=== PATIENT | female | born 1945 | race Caucasian/White ===

== ENCOUNTER 2024-02-15 11:36 | Inpatient (IN) | payer MEDICARE, BC, SELFPAY ==
--- NOTE | 2024-01-10 11:08 | CM ---
Patient is scheduled for an elective L TKR on 02/15/24. Spoke with patient and prior to surgery via telephone. Introduced role of Orthopedic Navigator. Patient reports that she lives with her in a one floor apartment. There are no
steps to enter and building is elevator accessible. She currently functions independently. She uses a cane outside and also has toilet rails and a higher toilet. She has never had VN services. PCP is Levar Christie.
Discussed orthopedic program and post surgical plans. Reviewed anticipated length of stay and that goal is for her to return home at discharge. Also reviewed outpatient PT. Patient is in agreement with tentative plan and will go directly to
outpatient PT at [facility]. She will have support from her when she goes home.
Patient will complete online education.
Plan: Orthopedic Navigator will remain available to assist with the care of patient and will reassess discharge needs after surgery.
[2024-01-23 08:01] VITALS: BMI 42.0
[2024-01-23 09:16] LABS: Hematocrit 37.5 % (37.0-47.0); Hemoglobin 12.2 g/dL (12.0-16.0); Mean Corp Hgb Conc. 32.5 g/dL (33.0-37.0); Mean Corpuscular Volume 89.1 fL (81.0-99.0); Mean Platelet Volume 10.2 fL (7.4-10.4); Platelet Count 428 10^3/uL (130-400); Red Blood Cell Count 4.21 10^6/uL (4.20-5.40); Red Cell Dist. Width 14.2 % (11.5-14.5); White Blood Cell Count 5.8 10^3/uL (4.8-10.8)
[2024-01-23 09:42] LABS: ALT (SGPT) 15 U/L (0-35); AST (SGOT) 26 U/L (14-36); Albumin 4.3 g/dl (3.5-5.0); Alkaline Phosphatase 98 U/L (38-126); Blood Urea Nitrogen 14 mg/dl (7-17); Calcium 10.3 mg/dl (8.4-10.2); Carbon Dioxide 25 mmol/L (22-30); Chloride 105 mmol/L (98-107); Estimated Creatinine Clearance 88 ml/min; Glucose 105 mg/dl (70-99); Potassium 5.4 mmol/L (3.5-5.1); Sodium 139 mmol/L (135-145); Total Bilirubin 0.6 mg/dl (0.2-1.3); Total Protein 7.2 g/dl (6.3-8.2); eGFR > 60.00
[2024-01-23 15:16] VITALS: BMI 42.0
[2024-02-15] VITALS (12 sets, daily range): BP systolic 138–170; BP diastolic 66–94; PULSE 63; O2SAT 99; BMI 42.0
[2024-02-15] MEDS: TYLENOL 650 MG PO ×4 (10:44→23:19)
[2024-02-15] MEDS: CELEBREX 200 MG PO (10:45)
[2024-02-15] MEDS: NORMOSOL-R 1000 IV ×2 (10:53→14:45)
[2024-02-15] MEDS: ROXICODONE 5 MG PO (14:50)
[2024-02-15] MEDS: PROTONIX 40 MG PO (15:27)
--- NOTE | 2024-02-15 16:12 | PTCARENOTE ---
1600: Patient arrived to 2S. Full head to toe assessment completed. B/L LE neurovascular assessment completed. Dressing on L knee clean dry and intact. IVF running per order. Call benites within reach and bed in lowest position.
--- NOTE | 2024-02-15 16:36 | OR.RPT ---
Operative Report
Operative Report
Orthopaedic Surgery Operative Note
DATE OF OPERATION: 02/15/2024
PREOPERATIVE DIAGNOSES: Osteoarthritis, left knee.
POSTOPERATIVE DIAGNOSES: Osteoarthritis, left knee.
OPERATION PERFORMED:
1) Left total knee arthroplasty (CPT 46402 with 22 modifier)
2) Intraosseous administration of analgesic (CPT 05854)
SURGEON: Elver Zacarias MD
ASSISTANTS: Ward Quinones PA-C who helped with patient and limb positioning and retraction
ANESTHESIA: Spinal by anesthesia plus intraoperative infusion of morphine into the tibial metaphysis by Dr. Zacarias
COMPLICATIONS: None.
ESTIMATED BLOOD LOSS: 20mL
DRAINS: None
TOURNIQUET TIME: 45minutes.
IMPLANTS:
- Pamela Persona CR Femur, size 9
- Pamela Persona tibia base plate, size D
- Pamela Persona medial constrained articular surface, 12 mm
- All-polyethylene patellar component, size 32
- DJO [place] bone cement
INDICATIONS: The patient presented to my office with debilitating left knee pain due to osteoarthritis. We reviewed the natural history of this problem, as well as the risks, benefits, and alternatives of various treatment options. The patient
exhausted all nonoperative treatment options and wished to proceed with knee replacement surgery. The patient understood the risks which included, but were not limited to, bleeding, infection, failure to relieve pain, more pain than preop, damage to
blood vessels and nerves, need for reoperation, mechanical failure of the implants, wound healing problems, stiffness, instability, blood clot, pulmonary embolism, myocardial infarction, pneumonia, arrhythmia, CVA, and . The patient accepted
these risks and wished to proceed. All questions were answered, and informed consent was obtained.
PROCEDURE IN DETAIL: The patient was identified in the preoperative holding area. The left knee was identified as the operative site. The patient was taken in the operating room and placed in a supine position on the operating table. Spinal
anesthesia was performed. IV antibiotics and tranexamic acid were administered. An SCD was placed on the right lower extremity. A well-padded tourniquet was placed on the proximal thigh. All bony prominences were well padded. The left lower
extremity was prepped and draped in the usual sterile fashion.
We performed a surgical time-out. An interarticular block was performed with local anesthetic with epinephrine. I performed interosseous administration of morphine-saline solution via a Jamshidi style intraosseous needle into the proximal medial
tibial metaphysis as described by Giles Hebert MD. This was performed to aid in pain control. The limb was exsanguinated with an Esmarch bandage, then the tourniquet was inflated to 250 mmHg. A midline skin incision was made followed by a medial
parapatellar arthrotomy. A subperiosteal peel was performed on the medial tibia. I excised part of the infrapatellar fat pad to improve our visualization as well as tissue over anterior femur. The patella was everted and the knee was flexed. I
excised the remnants of the anterior and posterior cruciate ligaments as well as tibial and femoral osteophytes with rongeurs.
The knee was flexed, and the extramedullary tibial cutting guide was aligned. Morrison was aligned at neutral, rotation was centered on the tibial tubercle, and coronal alignment was aligned with the mechanical axis of the tibia and center of the ankle
joint. The cut height was 10mm off the lateral tibia joint surface. The guide was secured into place. The MCL and LCL were protected. The tibia surface was cut. The cut surface was inspected after removal to ensure appropriate height and slope based
on the preoperative plan. The cut was checked with a drop brian. It was centered nicely at the ankle.
A drill was used to open the femoral canal. The intramedullary distal femoral cutting guide was inserted into the femur. This was set at 5 degrees +1. This was secured into place with three pins. The cut level was checked with an galo wing. The
distal femur was cut through the cutting guide. The IM guide was reinserted to double check that the level of resection was flush and in appropriate alignment.
Kunal�s line and the transepicondylar axis were marked on the femur. The femoral sizing guide was applied to the anterior femur. Pins were inserted, and the 4-in-1 cutting guide was applied and secured into place. The rotation was compared to
Kunal�s line, the transepicondylar axis, and the neutral tibia cut and was found to be appropriate. The width was checked and found to be appropriate and lateralized on the femur. The anterior, posterior, and chamfur cuts were made. A lamina
aviation operations specialist was used to open the flexion gap, and posterior osteophytes were removed with a curved osteotome. The remnant medial and lateral meniscus were also removed. I prophylactically cauterized the lateral geniculate arteries. A 10mm spacer block
was applied to the flexion gap and was noted to be balanced medially and laterally. The knee was extended, and the block showed symmetric to extension and flexion gaps.
The tibia was exposed and sized. Rotation was set in line with the tibial tubercle and congruent with the femur. The trial was secured into place with two pins. The trial femur was impacted into place, and a trial articular surface was placed. The
knee was taken through range of motion and noted to be stable throughout the arc of motion without gaping or excess tension. In extension, a measured resection of the patella was performed. The patella was sized, and lug holes were drilled. A trial
patella component was applied, and it was noted to track centrally throughout the arc of motion without need for further releases.
The trials were removed. The tibia keel was prepared with the punch and the drill. The bone surfaces were irrigated with sterile saline and dried. The cement was mixed in a vacuum mixer. Cement gun was used to apply cement to the tibial surface and
the undersurface of the tibial implant. Cement was pressurized into the tibial canal and tibia surface. The tibial component was impacted into place. Excess cement was removed. Cement was applied to the femoral surface and the femoral component. The
femoral component was impacted into place, and excess cement removed. A trial articular surface was inserted, and the knee was extended while the cement polymerized. The tourniquet was let down, and meticulous hemostasis was achieved. Dilute
betadine was poured into the wound and allowed to soak for 3 minutes. The knee was irrigated with copious normal saline.
Once the cement was polymerized, the trial articular surface was removed. Any excess cement was removed. The knee was trialed, and the final articular surface was selected and inserted into the tibial locking mechanism. The knee was reduced. A fresh
drape was applied to the surgical field.
The arthrotomy was closed with 0-PDS. Once closed, an interarticular block was performed with local anesthetic with epi. The deep dermal layer was closed with 2-0 PDS, and the subcuticular skin was closed with 3-0 monocryl. A Dermabond Prineo
dressing was applied to the skin in full flexion. Once this was completely dry, a sterile waterproof dressing was applied.
The anesthesia team performed an adductor canal block in the OR. The patient awoke from anesthesia without any difficulties. The sponge and instrument counts were correct x2 at the end of the case.
Of note, 22 modifier was added for complexity due to BMI >40kg/m2 which added 20 additional minutes for positioning, exposure, and implanting the components.
Babak Zacarias MD
[2024-02-15] MEDS: LIPITOR 20 MG PO (17:01)
[2024-02-15] MEDS: ASPIRIN 325 MG PO (17:01)
[2024-02-15] MEDS: DELTASONE 40 MG PO (17:01)
[2024-02-15] MEDS: AZULFIDINE 500 MG PO (19:45)
[2024-02-15] MEDS: COLACE 100 MG PO (19:45)
[2024-02-15] MEDS: SENOKOT 17.1999999999999993 MG PO (19:45)
[2024-02-15] MEDS: ANCEF 5 IV (19:46)
[2024-02-15] MEDS: BACTROBAN 2% OINTMENT 1 APPLIC NASAL (19:46)
[2024-02-15] MEDS: COREG 12.5 MG PO (19:46)
[2024-02-15] MEDS: NEURONTIN 300 MG PO (23:19)
[2024-02-16] MEDS: ANCEF 5 IV (03:18)
[2024-02-16] MEDS: TYLENOL 650 MG PO ×2 (03:19→08:10)
[2024-02-16 03:20] VITALS: BP 164/98
[2024-02-16 07:52] VITALS: BP 126/69
[2024-02-16] MEDS: ASPIRIN 325 MG PO (08:11)
[2024-02-16] MEDS: DELTASONE 40 MG PO (08:11)
[2024-02-16] MEDS: VISBIOME 1 CAP PO (08:11)
[2024-02-16] MEDS: PROTONIX 40 MG PO (08:11)
[2024-02-16] MEDS: COLACE 100 MG PO (08:11)
[2024-02-16] MEDS: COREG 12.5 MG PO (08:11)
[2024-02-16] MEDS: SENOKOT 17.1999999999999993 MG PO (08:11)
[2024-02-16] MEDS: BACTROBAN 2% OINTMENT 1 APPLIC NASAL (08:12)
[2024-02-16] MEDS: AZULFIDINE 500 MG PO (08:12)
--- NOTE | 2024-02-16 08:42 | CM ---
Addendum entered by NICOL Moreno 02/16/24 11:24:
met and patient in room. Gave them outpatient PT script. Patient did well , no concerns about discharge to home today.
Original Note:
Reviewed chart and held rounds with PT, OT and nursing. Patient admitted as planned for elective L TKR. Met with patient at bedside. Confirmed information previously obtained for assessment. Also discussed discharge plans. The plan is for patient to
return home at discharge. She will have support from when she goes home. Patient will go directly to outpatient PT and will go to [facility]. She has an appointment scheduled for Monday, 02/18. Reviewed need to schedule appointment with Dr Zacarias
office in two weeks for removal of dressing and macy.
Patient has a rolling walker, cane, comfort height toilet seat.
She will use [facility] pharmacy for discharge prescriptions.
[2024-02-16 09:09] VITALS: BP 148/72; PULSE 73; O2SAT 97
[2024-02-16 09:47] VITALS: BP 131/61; PULSE 72; O2SAT 95
--- NOTE | 2024-02-16 10:12 | W.PN.ORTHO ---
Today's Communication / Plan
-
d/c
Assessment
.
Distal Motor Intact: Yes
Dressing:
Clean, dry and intact.
Plan
.
Surgery / Date: Alena Zacarias 02/15/24
DVT Prophylaxis: Aspirin
Activity:
Out of bed.
PT/OT
Discharge Plan: Home w/ Outpatient PT
Subjective
.
.:
Patient resting comfortably.
Vital Signs and Labs
.
Vital Signs and Labs:
Lab Results
01/23/24 07:57
01/23/24 07:57
Temp Pulse Resp BP Pulse Ox
98 F 61 18 126/69 95
02/16/24 07:52 02/16/24 07:52 02/16/24 07:52 02/16/24 08:11 02/16/24 07:52
Non-invasive Hgb result: 11.2
Physical Exam
-
HEENT: No pallor, cyanosis, or jaundice. Throat clear.
NECK: Supple. No JVD.
RESPIRATORY: Lungs clear to auscultation.
CVS: S1, S2 normal. RRR.� No murmur, rub or gallop.
ABDOMEN: Soft, non-tender. No distension. BS+/normal.
EXTREMITIES: strength equal, no calf pain with palpation
LABOR ECONOMICS PROFESSOR: AOx3. No focal deficits. it risk analyst grossly intact
--- NOTE | 2024-02-16 10:22 | W.DS.TRANS ---
DC Summary - Wire Spinner
-
Discharge Instructions:
Discharge Diagnosis/Procedures L TKA Dr. Zacarias 02/15/24
Diet As tolerated
Activity With Walker
Driving Restrictions No driving
Bathing Restrictions OK to Shower
Other Services PT
Instructions:
Stand-Alone Forms: Total Hip/Knee Replacement D/C
Changes to Home Medications: Yes
Discharge Medications:
DC Medications w/original date entered in [facility]
Bifidobacterium infantis 10.5 mg (10 million cell) chewable tablet (Align) 10.5 mg PO DAILY 01/17/24
Centrum Silver Women 1 tab PO DAILY 01/17/24
Co Q-10 1 tab PO HS 01/17/24
Simponi 1 unit IV .Q 2 MONTHS 01/17/24
atorvastatin 20 mg tablet 20 mg PO QPM 01/17/24
carvedilol 12.5 mg tablet 12.5 mg PO BID 01/17/24
cholecalciferol (vitamin D3) 25 mcg (1,000 unit) tablet (Vitamin D3) 25 mcg PO DAILY 01/17/24
diclofenac sodium 1 % topical gel 1 ea topical PRN PRN knee 01/17/24
ketoconazole 2 % shampoo 1 applic topical ONCE 01/17/24
ketoconazole 2 % topical cream 1 applic topical DAILY PRN rash 01/17/24
pantoprazole 40 mg tablet,delayed release 40 mg PO DAILY 01/17/24
sulfasalazine 500 mg tablet 1 g PO BID 01/17/24
valsartan 160 mg tablet 160 mg PO DAILY 01/17/24
mupirocin 2 % topical ointment 1 applic topical BID infection prevention #1 tube 01/23/24
acetaminophen 325 mg capsule (Tylenol) 650 mg (2 x 325 mg) PO QID #2 caps 02/16/24
aspirin 325 mg tablet 325 mg PO DAILY blood clot prevention #1 tab 02/16/24
clindamycin HCl 300 mg capsule 300 mg PO QID Infection #20 caps 02/16/24
docusate sodium 100 mg capsule (Colace) 100 mg PO BID stool softner #1 cap 02/16/24
gabapentin 300 mg capsule 300 mg PO HS sleep/pain #10 caps 02/16/24
magnesium hydroxide 400 mg/5 mL oral suspension (Milk of Magnesia) 30 ml PO HS PRN Constipation #1 mL 02/16/24
oxycodone 5 mg tablet 5 mg PO Q6H PRN 1 tab moderate pain, 2 tabs severe pain #30 tabs 02/16/24
sennosides 8.6 mg tablet (Senokot) 17.2 mg (2 x 8.6 mg) PO BID laxative #2 tabs 02/16/24
Home Medication Changes
clindamycin HCl 300 mg capsule 300 mg PO QID Infection #20 caps 02/16/24
gabapentin 300 mg capsule 300 mg PO HS sleep/pain #10 caps 02/16/24
oxycodone 5 mg tablet 5 mg PO Q6H PRN 1 tab moderate pain, 2 tabs severe pain #30 tabs 02/16/24
Prednisone
Pending Results: No
== END 2024-02-16 11:19 | disposition home or self-care (01) | DRG 470 ==
LOC: 2 SOUTH 11:36
PROVIDERS: ADMITTING PHYSICIAN Orthopaedic Surgery; FAMILY PHYSICIAN Family Medicine
PROC: 0SRD0J9 Replacement of Left Knee Joint with Synthetic Substitute, Cemented, Open Approach (ICD-10-PCS; 2024-02-15)
DX: M17.12 Unilateral primary osteoarthritis, left knee (principal); Z68.41 Body mass index [BMI] 40.0-44.9, adult; E66.01 Morbid (severe) obesity due to excess calories; I10 Essential (primary) hypertension; M06.9 Rheumatoid arthritis, unspecified; E78.5 Hyperlipidemia, unspecified; G47.33 Obstructive sleep apnea (adult) (pediatric); G57.61 Lesion of plantar nerve, right lower limb; K21.9 Gastro-esophageal reflux disease without esophagitis; K57.30 Diverticulosis of large intestine without perforation or abscess without bleeding; I44.7 Left bundle-branch block, unspecified; R00.2 Palpitations; R60.0 Localized edema; Z85.528 Personal history of other malignant neoplasm of kidney; Z90.5 Acquired absence of kidney; Z88.1 Allergy status to other antibiotic agents; Z79.899 Other long term (current) drug therapy
CPT/HCPCS: 36415; 73560; 80053; 83036; 85027; 87070; 97110; 97116; 97162; 97165; 97530; 97535; C1713; C1776